=== PATIENT | female | born 1995 | race Caucasian/White ===

== ENCOUNTER 2022-12-06 14:56 | Inpatient (IN) | payer MEDICAID ==
[~2022-12-06] VITALS: Ht 167.6 cm; Wt 75.5 kg
[2022-12-06] MEDS ORDERED: DiphenhydrAMINE HCL 50 MG/ML VIAL IM ONE (16:30)
[2022-12-06] MEDS ORDERED: HALOPERIDOL LACTATE 5 MG/ML VIAL IM ONE (16:30)
[2022-12-06] MEDS ORDERED: LORazepam 2 MG/ML VIAL IM ONE (16:30)
[2022-12-06 17:26] LABS: BASOPHILS % (AUTO) 0.3 % (0.0-2.0); EOSINOPHILS % (AUTO) 0.8 % (1.0-6.0); HEMATOCRIT 38.9 % (36-46); HEMOGLOBIN 13.1 g/dL (12.0-16.0); LYMPHOCYTES # (AUTO) 1.5 K/uL (1.0-4.8); LYMPHOCYTES % (AUTO) 13.6 % (22.0-44.0); MEAN CORPUSCULAR HEMOGLOBIN 28.2 pg (26.0-34.0); MEAN CORPUSCULAR HGB CONC 33.6 G/dL (31.0-37.0); MEAN CORPUSCULAR VOLUME 84 fL (80-100); MONOCYTES # (AUTO) 0.7 K/uL (0.1-1.0); MONOCYTES % (AUTO) 5.7 % (2.0-9.0); NEUTROPHILS % (AUTO) 79.6 % (40.0-70.0); PLATELET COUNT (AUTO) 307 K/uL (150-450); RED BLOOD CELL COUNT(AUTO) 4.63 MIL/uL (4.00-5.20); RED CELL DISTRIBUTION WIDTH 13.6 % (11.5-14.5)
[2022-12-06 17:32] LABS: ANION GAP 12 mmol/L (8-16); CALCIUM, TOTAL 8.6 mg/dL (8.8-10.5); CARBON DIOXIDE 23 mmol/L (22-29); CHLORIDE 104 mmol/L (98-107); CREATININE 0.71 mg/dL (0.60-1.30); GLOMERULAR FILTR. RATE CALC > 60 mL/min (>60); GLUCOSE,RANDOM 125 mg/dL (70-110); POTASSIUM 3.3 mmol/L (3.5-5.1); SODIUM SERUM 139 mmol/L (136-145); UREA NITROGEN, BLOOD 7 mg/dL (7-18)
[2022-12-06 17:38] LABS: ALANINE AMINOTRANSFERASE 67 U/L (12-78); ALBUMIN 4.3 g/dL (3.4-5.0); ALKALINE PHOSPHATASE 76 U/L (46-116); ASPARTATE AMINOTRANSFERASE 91 U/L (15-37); BILIRUBIN,TOTAL 1.2 mg/dL (0.1-1.0); TOTAL PROTEIN, SERUM 7.4 g/dL (6.4-8.2)
[2022-12-06 17:49] LABS: COVID AG,FIA SOURCE NASOPHARYNGEAL
[2022-12-06] MEDS ORDERED: LORazepam 2 MG TABLET PO PRN (19:45)
[2022-12-06] MEDS ORDERED: HALOPERIDOL 5 MG TABLET PO PRN (19:45)
[2022-12-07 08:27] VITALS: BP 118/76
[2022-12-07 09:02] LABS: AMPHET/METH SCREEN,URINE NEGATIVE (NEGATIVE); BARBITURATE SCREEN, URINE NEGATIVE (NEGATIVE); BENZODIAZEPINES SCREEN,URINE NEGATIVE (NEGATIVE); CANNABINOID SCREEN,URINE NEGATIVE (NEGATIVE); COCAINE SCREEN,URINE NEGATIVE (NEGATIVE); METHADONE SCREEN, URINE NEGATIVE (NEGATIVE); OPIATE SCREEN,URINE NEGATIVE (NEGATIVE); PHENCYCLIDINE SCREEN,URINE NEGATIVE (NEGATIVE)
[2022-12-07] MEDS ORDERED: OMEPRAZOLE 20 MG CAPSULE PO PRN (09:15)
[2022-12-07] MEDS ORDERED: BACITRACIN 28 GM OINTMENT TP PRN (09:15)
[2022-12-07] MEDS ORDERED: PETROLATUM,WHITE 28 GM JELLY TP PRN (09:15)
[2022-12-07] MEDS ORDERED: IBUPROFEN 600 MG TABLET PO PRN (09:15)
[2022-12-07] MEDS ORDERED: CloNIDine HCL 0.1 MG TABLET PO PRN (09:15)
[2022-12-07] MEDS ORDERED: ONDANSETRON HCL 4 MG TABLET PO PRN (09:15)
[2022-12-07] MEDS ORDERED: DOCUSATE SODIUM 100 MG CAPSULE PO PRN (09:15)
[2022-12-07] MEDS ORDERED: MAGNESIUM HYDROXIDE SUSPENSION 30 ML UDCUP PO PRN (09:15)
[2022-12-07] MEDS ORDERED: ALBUTEROL SULFATE HFA 90 MCG/PUFF 8 GM INHALER IH PRN (09:15)
[2022-12-07] MEDS ORDERED: ACETAMINOPHEN 325 MG TABLET PO PRN (09:15)
[2022-12-07] MEDS ORDERED: LOPERAMIDE HCL 2 MG CAPSULE PO PRN (09:15)
[2022-12-07] MEDS ORDERED: MAG HYDROX/AL HYDROX/SIMETH ES 30 ML SUSPENSION UDCUP PO PRN (09:15)
[2022-12-07 12:27] VITALS: BP 119/86
[2022-12-07] MEDS: LITHIUM CARBONATE 300 MG CAPSULE PO SCH (16:19)
[2022-12-07] MEDS: RisperiDONE 1 MG TABLET PO SCH (16:19)
[2022-12-07] MEDS: DIVALPROEX SODIUM 500 MG DR TABLET PO SCH (16:19)
[2022-12-07] MEDS: ZOLPIDEM TARTRATE 10 MG TABLET PO PRN (22:53)
[2022-12-07 23:01] VITALS: BP 128/92
[2022-12-08] MEDS: DIVALPROEX SODIUM 500 MG DR TABLET PO SCH ×2 (08:43→16:38)
[2022-12-08] MEDS: LITHIUM CARBONATE 300 MG CAPSULE PO SCH ×2 (08:43→16:38)
[2022-12-08] MEDS: RisperiDONE 1 MG TABLET PO SCH ×2 (08:43→16:38)
[2022-12-08 08:55] VITALS: BP 126/81
[2022-12-08 20:10] VITALS: BP 127/81
[2022-12-08] MEDS: ZOLPIDEM TARTRATE 10 MG TABLET PO PRN (20:29)
[2022-12-09 08:54] VITALS: BP 110/63
[2022-12-09] MEDS: RisperiDONE 1 MG TABLET PO SCH ×2 (09:03→16:54)
[2022-12-09] MEDS: LITHIUM CARBONATE 300 MG CAPSULE PO SCH ×2 (09:03→16:54)
[2022-12-09] MEDS: DIVALPROEX SODIUM 500 MG DR TABLET PO SCH ×2 (09:03→16:54)
[2022-12-09 20:29] VITALS: BP 116/71
[2022-12-09] MEDS: ZOLPIDEM TARTRATE 10 MG TABLET PO PRN (21:04)
[2022-12-10] MEDS: RisperiDONE 1 MG TABLET PO SCH ×2 (09:08→17:23)
[2022-12-10] MEDS: LITHIUM CARBONATE 300 MG CAPSULE PO SCH ×2 (09:08→17:23)
[2022-12-10] MEDS: DIVALPROEX SODIUM 500 MG DR TABLET PO SCH ×2 (09:08→17:23)
[2022-12-10] MEDS ORDERED: DIVA-112 PO (12:08)
[2022-12-10] MEDS ORDERED: RISP1TAB98 PO (12:08)
[2022-12-10] MEDS ORDERED: LITH300C3 PO (12:08)
[2022-12-10 20:17] VITALS: BP 109/75
[2022-12-11 08:34] LABS: LITHIUM 0.24 mmol/L (0.60-1.20)
[2022-12-11] MEDS: RisperiDONE 1 MG TABLET PO SCH (08:36)
[2022-12-11] MEDS: LITHIUM CARBONATE 300 MG CAPSULE PO SCH (08:37)
[2022-12-11] MEDS: DIVALPROEX SODIUM 500 MG DR TABLET PO SCH (08:37)
[2022-12-11 09:08] VITALS: BP 109/73
[2022-12-11 11:21] LABS: GLUCOMETER DEV NAME(LOC) POC.BV
== END 2022-12-11 12:00 | disposition home or self-care (01) | DRG 750 ==
LOC: EMS 14:56 → B3A 20:30 → B2S 12-07 21:27
PROVIDERS: ADMIT Psychiatry & Neurology Psychiatry; ATTEND Psychiatry & Neurology Psychiatry
DX: F25.9 Schizoaffective disorder, unspecified (principal); E87.6 Hypokalemia; F31.9 Bipolar disorder, unspecified; F41.9 Anxiety disorder, unspecified; K59.00 Constipation, unspecified; G47.00 Insomnia, unspecified; Z20.822 Contact with and (suspected) exposure to COVID-19
CPT/HCPCS: 80053; 80164; 80178; 80307; 84703; 85025; 99291; G0480; J1200; J1630; J2060

== ENCOUNTER 2022-12-07 18:21 | Emergency (ER) | payer MEDICAID ==
[~2022-12-07] VITALS: Ht 167.6 cm; Wt 61.4 kg
[2022-12-07 19:53] VITALS: BP 113/69
== END 2022-12-07 22:04 | disposition home or self-care (01) ==
LOC: EMS 18:21
DX: S10.91XA Abrasion of unspecified part of neck, initial encounter (principal); F31.9 Bipolar disorder, unspecified; Z98.890 Other specified postprocedural states; Y04.8XXA Assault by other bodily force, initial encounter; Y93.89 Activity, other specified; Y92.89 Other specified places as the place of occurrence of the external cause; Y99.8 Other external cause status
CPT/HCPCS: 99283; Z7502

== ENCOUNTER 2022-12-21 13:04 | Inpatient (IN) | payer MEDICAID ==
[~2022-12-21] VITALS: Ht 167.6 cm; Wt 75.0 kg
[~2022-12-21 13:04] MED LIST: DIVA-112 PO; LITH300C3 PO; RISP1TAB98 PO
[2022-12-21 14:44] LABS: BASOPHILS % (AUTO) 0.4 % (0.0-2.0); EOSINOPHILS % (AUTO) 0.7 % (1.0-6.0); HEMATOCRIT 41.2 % (36-46); HEMOGLOBIN 13.3 g/dL (12.0-16.0); LYMPHOCYTES # (AUTO) 1.9 K/uL (1.0-4.8); LYMPHOCYTES % (AUTO) 13.2 % (22.0-44.0); MEAN CORPUSCULAR HEMOGLOBIN 27.7 pg (26.0-34.0); MEAN CORPUSCULAR HGB CONC 32.4 G/dL (31.0-37.0); MEAN CORPUSCULAR VOLUME 86 fL (80-100); MONOCYTES # (AUTO) 1.1 K/uL (0.1-1.0); MONOCYTES % (AUTO) 7.4 % (2.0-9.0); NEUTROPHILS # (AUTO) 11.2 K/uL (1.8-7.7); NEUTROPHILS % (AUTO) 78.3 % (40.0-70.0); PLATELET COUNT (AUTO) 396 K/uL (150-450); RED BLOOD CELL COUNT(AUTO) 4.81 MIL/uL (4.00-5.20); RED CELL DISTRIBUTION WIDTH 13.9 % (11.5-14.5)
[2022-12-21 14:47] LABS: ANION GAP 8 mmol/L (8-16); CALCIUM, TOTAL 9.2 mg/dL (8.8-10.5); CARBON DIOXIDE 29 mmol/L (22-29); CHLORIDE 102 mmol/L (98-107); CREATININE 0.78 mg/dL (0.60-1.30); GLOMERULAR FILTR. RATE CALC > 60 mL/min (>60); GLUCOSE,RANDOM 100 mg/dL (70-110); POTASSIUM 3.8 mmol/L (3.5-5.1); SODIUM SERUM 139 mmol/L (136-145)
[2022-12-21 15:00] LABS: ALANINE AMINOTRANSFERASE 26 U/L (12-78); ALKALINE PHOSPHATASE 121 U/L (46-116); ASPARTATE AMINOTRANSFERASE 21 U/L (15-37); BILIRUBIN,TOTAL 0.5 mg/dL (0.1-1.0); HCG,QUANTITATIVE < 1 mIU/mL (0-6); TOTAL PROTEIN, SERUM 8.2 g/dL (6.4-8.2); VALPROIC ACID 98 mcg/mL (50-100)
[2022-12-21 15:30] LABS: COVID AG,FIA SOURCE NASOPHARYNGEAL
[2022-12-21 15:44] LABS: AMPHET/METH SCREEN,URINE NEGATIVE (NEGATIVE); BARBITURATE SCREEN, URINE NEGATIVE (NEGATIVE); BENZODIAZEPINES SCREEN,URINE NEGATIVE (NEGATIVE); CANNABINOID SCREEN,URINE NEGATIVE (NEGATIVE); COCAINE SCREEN,URINE NEGATIVE (NEGATIVE); METHADONE SCREEN, URINE NEGATIVE (NEGATIVE); OPIATE SCREEN,URINE NEGATIVE (NEGATIVE); PHENCYCLIDINE SCREEN,URINE NEGATIVE (NEGATIVE)
[2022-12-21] MEDS: DIVALPROEX SODIUM 500 MG DR TABLET PO SCH (17:30)
[2022-12-21] MEDS: RisperiDONE 1 MG TABLET PO SCH (17:30)
[2022-12-21] MEDS: LITHIUM CARBONATE 300 MG CAPSULE PO SCH (17:31)
[2022-12-21 22:52] VITALS: BP 114/75
[2022-12-21] MEDS ORDERED: LOPERAMIDE HCL 2 MG CAPSULE PO PRN (23:00)
[2022-12-21] MEDS ORDERED: ONDANSETRON HCL 4 MG TABLET PO PRN (23:00)
[2022-12-21] MEDS ORDERED: MAG HYDROX/AL HYDROX/SIMETH ES 30 ML SUSPENSION UDCUP PO PRN (23:00)
[2022-12-21] MEDS ORDERED: CloNIDine HCL 0.1 MG TABLET PO PRN (23:00)
[2022-12-21] MEDS ORDERED: DOCUSATE SODIUM 100 MG CAPSULE PO PRN (23:00)
[2022-12-21] MEDS ORDERED: BACITRACIN 28 GM OINTMENT TP PRN (23:00)
[2022-12-21] MEDS ORDERED: OMEPRAZOLE 20 MG CAPSULE PO PRN (23:00)
[2022-12-21] MEDS ORDERED: MAGNESIUM HYDROXIDE SUSPENSION 30 ML UDCUP PO PRN (23:00)
[2022-12-21] MEDS ORDERED: PETROLATUM,WHITE 28 GM JELLY TP PRN (23:00)
[2022-12-21] MEDS ORDERED: ALBUTEROL SULFATE HFA 90 MCG/PUFF 8 GM INHALER IH PRN (23:00)
[2022-12-22 07:02] LABS: APPEARANCE,URINE CLEAR (CLEAR); BILIRUBIN,URINE NEGATIVE (NEGATIVE); GLUCOSE, URINE (UA) NEGATIVE (NEGATIVE); KETONES,URINE NEGATIVE (NEGATIVE); LEUKOCYTE ESTERASE ,URINE MODERATE (NEGATIVE); NITRATE,URINE NEGATIVE (NEGATIVE); OCCULT BLOOD,URINE NEGATIVE (NEGATIVE); PH,URINE 6.5 (5.0-8.0); PROTEIN,URINE TRACE mg/dL (NEGATIVE); SPECIFIC GRAVITIY, URINE 1.023 (1.003-1.030); UROBILINOGEN,URINE <=1.0 mg/dL (<=1.0)
[2022-12-22 07:05] VITALS: BP 131/84
[2022-12-22 07:08] LABS: AMPHET/METH SCREEN,URINE NEGATIVE (NEGATIVE); BARBITURATE SCREEN, URINE NEGATIVE (NEGATIVE); BENZODIAZEPINES SCREEN,URINE NEGATIVE (NEGATIVE); CANNABINOID SCREEN,URINE NEGATIVE (NEGATIVE); COCAINE SCREEN,URINE NEGATIVE (NEGATIVE); METHADONE SCREEN, URINE NEGATIVE (NEGATIVE); OPIATE SCREEN,URINE NEGATIVE (NEGATIVE); PHENCYCLIDINE SCREEN,URINE NEGATIVE (NEGATIVE)
[2022-12-22] MEDS: ACETAMINOPHEN 325 MG TABLET PO PRN (07:14)
[2022-12-22 07:17] LABS: BACTERIA,URINE None Seen /HPF (None Seen); RBC,URINE None Seen /HPF (0-2); SQUAMOUS EPITHELIAL CELL,UR Few /LPF (None Seen)
[2022-12-22 08:14] VITALS: BP 139/81
[2022-12-22] MEDS: LORazepam 2 MG TABLET PO PRN (08:59)
[2022-12-22] MEDS: LITHIUM CARBONATE 300 MG CAPSULE PO SCH ×2 (08:59→16:55)
[2022-12-22] MEDS: HALOPERIDOL 5 MG TABLET PO PRN (08:59)
[2022-12-22] MEDS: DIVALPROEX SODIUM 500 MG DR TABLET PO SCH ×2 (08:59→16:55)
[2022-12-22] MEDS: RisperiDONE 1 MG TABLET PO SCH ×2 (08:59→16:55)
[2022-12-22 09:11] VITALS: BP 139/81
[2022-12-22 21:22] VITALS: BP 135/74
[2022-12-23] MEDS: LORazepam 2 MG TABLET PO PRN (06:15)
[2022-12-23 06:43] VITALS: BP 106/71
[2022-12-23 09:14] VITALS: BP 130/80
[2022-12-23] MEDS: RisperiDONE 1 MG TABLET PO SCH ×3 (09:28→16:46)
[2022-12-23] MEDS: LITHIUM CARBONATE 300 MG CAPSULE PO SCH ×3 (09:28→16:46)
[2022-12-23] MEDS: DIVALPROEX SODIUM 500 MG DR TABLET PO SCH ×3 (09:28→16:46)
[2022-12-23] MEDS: HALOPERIDOL 5 MG TABLET PO PRN (20:41)
[2022-12-23 22:11] VITALS: BP 141/92
[2022-12-24 00:25] VITALS: BP 99/60
[2022-12-24] MEDS: ACETAMINOPHEN 325 MG TABLET PO PRN (00:28)
[2022-12-24 00:36] VITALS: BP 99/60
[2022-12-24] MEDS: HALOPERIDOL 5 MG TABLET PO PRN (06:38)
[2022-12-24] MEDS: GuaiFENesin [SUGAR-FREE] 200 MG/10 ML SOLUTION UDCUP PO PRN ×2 (07:11→20:40)
[2022-12-24] MEDS: LORazepam 2 MG TABLET PO PRN (08:26)
[2022-12-24] MEDS: DIVALPROEX SODIUM 500 MG DR TABLET PO SCH ×2 (08:26→17:36)
[2022-12-24] MEDS: LITHIUM CARBONATE 300 MG CAPSULE PO SCH ×2 (08:26→17:37)
[2022-12-24] MEDS: RisperiDONE 1 MG TABLET PO SCH ×2 (08:26→17:37)
[2022-12-24 08:49] VITALS: BP 118/72
[2022-12-24] MEDS: ZOLPIDEM TARTRATE 10 MG TABLET PO PRN (20:40)
[2022-12-24 21:23] VITALS: BP 121/77
[2022-12-25] MEDS: RisperiDONE 1 MG TABLET PO SCH ×2 (08:10→16:32)
[2022-12-25] MEDS: DIVALPROEX SODIUM 500 MG DR TABLET PO SCH ×2 (08:11→16:32)
[2022-12-25] MEDS: LITHIUM CARBONATE 300 MG CAPSULE PO SCH ×2 (08:11→16:32)
[2022-12-25 09:16] VITALS: BP 121/71
[2022-12-25] MEDS: ACETAMINOPHEN 325 MG TABLET PO PRN (16:14)
[2022-12-25 16:15] VITALS: BP 124/76
[2022-12-25 17:15] VITALS: BP 121/79
[2022-12-25 20:33] VITALS: BP 141/90
[2022-12-25] MEDS: HALOPERIDOL 5 MG TABLET PO PRN (21:38)
[2022-12-25] MEDS: LORazepam 2 MG TABLET PO PRN (21:38)
[2022-12-25] MEDS: GuaiFENesin [SUGAR-FREE] 200 MG/10 ML SOLUTION UDCUP PO PRN (21:38)
[2022-12-26 07:08] VITALS: BP 124/72
[2022-12-26] MEDS: IBUPROFEN 600 MG TABLET PO PRN (07:11)
[2022-12-26] MEDS: LITHIUM CARBONATE 300 MG CAPSULE PO SCH ×2 (08:09→16:30)
[2022-12-26] MEDS: RisperiDONE 1 MG TABLET PO SCH ×2 (08:09→16:30)
[2022-12-26] MEDS: DIVALPROEX SODIUM 500 MG DR TABLET PO SCH ×2 (08:09→16:29)
[2022-12-26 08:11] VITALS: BP 113/64
[2022-12-26 08:31] VITALS: BP 113/64
[2022-12-26] MEDS: GuaiFENesin [SUGAR-FREE] 200 MG/10 ML SOLUTION UDCUP PO PRN (20:22)
[2022-12-26 20:52] VITALS: BP 113/72
[2022-12-27] MEDS: ACETAMINOPHEN 325 MG TABLET PO PRN (01:23)
[2022-12-27] MEDS ORDERED: HALOPERIDOL LACTATE 5 MG/ML VIAL ONE (02:54)
[2022-12-27] MEDS ORDERED: DiphenhydrAMINE HCL 50 MG/ML VIAL ONE (02:54)
[2022-12-27] MEDS ORDERED: LORazepam 2 MG/ML VIAL ONE (02:54)
[2022-12-27] MEDS ORDERED: DiphenhydrAMINE HCL 50 MG/ML VIAL IM ONE (03:00)
[2022-12-27] MEDS ORDERED: HALOPERIDOL LACTATE 5 MG/ML VIAL IM ONE (03:00)
[2022-12-27] MEDS ORDERED: LORazepam 2 MG/ML VIAL IM ONE (03:00)
[2022-12-27] MEDS: RisperiDONE 1 MG TABLET PO SCH ×2 (10:24→17:28)
[2022-12-27] MEDS: LITHIUM CARBONATE 300 MG CAPSULE PO SCH ×2 (10:24→17:28)
[2022-12-27] MEDS: DIVALPROEX SODIUM 500 MG DR TABLET PO SCH ×2 (10:24→17:28)
[2022-12-27 20:09] VITALS: BP 117/75
[2022-12-28] MEDS: GuaiFENesin [SUGAR-FREE] 200 MG/10 ML SOLUTION UDCUP PO PRN (03:08)
[2022-12-28 08:01] VITALS: BP 132/79
[2022-12-28] MEDS: RisperiDONE 1 MG TABLET PO SCH ×2 (08:01→18:22)
[2022-12-28] MEDS: LITHIUM CARBONATE 300 MG CAPSULE PO SCH ×3 (08:01→18:22)
[2022-12-28] MEDS: IBUPROFEN 600 MG TABLET PO PRN (08:01)
[2022-12-28] MEDS: DIVALPROEX SODIUM 500 MG DR TABLET PO SCH ×2 (08:02→18:22)
[2022-12-28] MEDS: LORazepam 2 MG TABLET PO PRN (08:02)
[2022-12-28 09:01] VITALS: BP 111/79
[2022-12-28] MEDS ORDERED: LORazepam 2 MG/ML VIAL IM ONE (14:00)
[2022-12-28] MEDS ORDERED: DiphenhydrAMINE HCL 50 MG/ML VIAL IM ONE (14:00)
[2022-12-28] MEDS ORDERED: HALOPERIDOL LACTATE 5 MG/ML VIAL IM ONE (14:00)
[2022-12-29] MEDS: LITHIUM CARBONATE 300 MG CAPSULE PO SCH ×3 (08:20→15:57)
[2022-12-29] MEDS: DIVALPROEX SODIUM 500 MG DR TABLET PO SCH ×2 (08:20→15:57)
[2022-12-29] MEDS: RisperiDONE 1 MG TABLET PO SCH ×2 (08:20→15:57)
[2022-12-29 09:05] VITALS: BP 120/80
[2022-12-29] MEDS: LORazepam 2 MG TABLET PO PRN (14:23)
[2022-12-29 20:05] VITALS: BP 117/77
[2022-12-30] MEDS: ZOLPIDEM TARTRATE 10 MG TABLET PO PRN (01:42)
[2022-12-30] MEDS: LORazepam 2 MG TABLET PO PRN (01:42)
[2022-12-30] MEDS: RisperiDONE 1 MG TABLET PO SCH ×2 (07:59→16:20)
[2022-12-30] MEDS: DIVALPROEX SODIUM 500 MG DR TABLET PO SCH ×2 (07:59→16:20)
[2022-12-30] MEDS: LITHIUM CARBONATE 300 MG CAPSULE PO SCH ×3 (07:59→16:20)
[2022-12-30 08:09] VITALS: BP 122/78
[2022-12-30] MEDS: HALOPERIDOL 5 MG TABLET PO PRN (12:03)
[2022-12-30] MEDS: IBUPROFEN 600 MG TABLET PO PRN (15:49)
[2022-12-30 21:03] VITALS: BP 115/79
[2022-12-31] MEDS: HALOPERIDOL 5 MG TABLET PO PRN (05:52)
[2022-12-31] MEDS: LORazepam 2 MG TABLET PO PRN (05:52)
[2022-12-31] MEDS: DIVALPROEX SODIUM 500 MG DR TABLET PO SCH (09:40)
[2022-12-31] MEDS: RisperiDONE 1 MG TABLET PO SCH (09:40)
[2022-12-31] MEDS: LITHIUM CARBONATE 300 MG CAPSULE PO SCH ×2 (09:40→13:05)
[2022-12-31 09:41] LABS: LITHIUM 0.45 mmol/L (0.60-1.20)
[2022-12-31 09:50] VITALS: BP 103/72
[2022-12-31] MEDS ORDERED: LITH300C3 PO (11:31)
== END 2022-12-31 13:00 | disposition home or self-care (01) | DRG 753 ==
LOC: EMS 13:22 → 3EI 17:09 → 3EC 12-24 00:33
PROVIDERS: ADMIT Psychiatry & Neurology Psychiatry; ATTEND Psychiatry & Neurology Psychiatry
DX: F31.9 Bipolar disorder, unspecified (principal); Z91.148 Patient's other noncompliance with medication regimen for other reason; F23 Brief psychotic disorder; Z20.822 Contact with and (suspected) exposure to COVID-19; F41.9 Anxiety disorder, unspecified; G47.00 Insomnia, unspecified; G89.29 Other chronic pain; K59.00 Constipation, unspecified; M25.571 Pain in right ankle and joints of right foot
CPT/HCPCS: 80053; 80164; 80178; 80307; 81001; 84702; 85025; 87081; 87086; 87186; 99285; G0480; J1200; J1630; J2060

== ENCOUNTER 2024-06-01 07:41 | Inpatient (IN) | payer MEDICAID, OTHER ==
[~2024-06-01] VITALS: Ht 170.2 cm; Wt 82.0 kg
[~2024-06-01 07:41] MED LIST changes: +RISP-31 PO; -RISP1TAB98 PO
[2024-06-01 08:16] LABS: BASOPHILS % (AUTO) 0.3 % (0.0-2.0); EOSINOPHILS % (AUTO) 0.4 % (1.0-6.0); HEMATOCRIT 39.7 % (36-46); HEMOGLOBIN 13.3 g/dL (12.0-16.0); LYMPHOCYTES # (AUTO) 1.9 K/uL (1.0-4.8); LYMPHOCYTES % (AUTO) 19.2 % (22.0-44.0); MEAN CORPUSCULAR HEMOGLOBIN 28.4 pg (26.0-34.0); MEAN CORPUSCULAR HGB CONC 33.4 G/dL (31.0-37.0); MEAN CORPUSCULAR VOLUME 85 fL (80-100); MONOCYTES # (AUTO) 0.6 K/uL (0.1-1.0); NEUTROPHILS # (AUTO) 7.4 K/uL (1.8-7.7); NEUTROPHILS % (AUTO) 74.1 % (40.0-70.0); PLATELET COUNT (AUTO) 299 K/uL (150-450); RED BLOOD CELL COUNT(AUTO) 4.68 MIL/uL (4.00-5.20); RED CELL DISTRIBUTION WIDTH 13.5 % (11.5-14.5); WHITE BLOOD COUNT (AUTO) 9.9 K/uL (4.5-11.0)
[2024-06-01 08:28] LABS: ANION GAP 9 mmol/L (8-16); CARBON DIOXIDE 26 mmol/L (22-29); CHLORIDE 101 mmol/L (98-107); CREATININE 0.77 mg/dL (0.60-1.30); GLOMERULAR FILTR. RATE CALC > 60 mL/min (>60); GLUCOSE,RANDOM 91 mg/dL (70-110); POTASSIUM 4.1 mmol/L (3.5-5.1); SODIUM SERUM 136 mmol/L (136-145); UREA NITROGEN, BLOOD 14 mg/dL (7-18)
[2024-06-01] MEDS: DiphenhydrAMINE HCL 50 MG/ML VIAL IM ONE (08:34)
[2024-06-01] MEDS: LORazepam 2 MG/ML VIAL IM ONE (08:35)
[2024-06-01] MEDS: HALOPERIDOL LACTATE 5 MG/ML VIAL IM ONE (08:35)
[2024-06-01 08:37] LABS: COVID AG,FIA SOURCE NASAL SWAB
[2024-06-01 08:51] LABS: AMPHET/METH SCREEN,URINE NEGATIVE (NEGATIVE); BARBITURATE SCREEN, URINE NEGATIVE (NEGATIVE); BENZODIAZEPINES SCREEN,URINE NEGATIVE (NEGATIVE); CANNABINOID SCREEN,URINE POSITIVE (NEGATIVE); COCAINE SCREEN,URINE NEGATIVE (NEGATIVE); METHADONE SCREEN, URINE NEGATIVE (NEGATIVE); OPIATE SCREEN,URINE NEGATIVE (NEGATIVE); PHENCYCLIDINE SCREEN,URINE NEGATIVE (NEGATIVE)
[2024-06-01 08:53] LABS: ALCOHOL, URINE DRUG SCREEN NEGATIVE (NEGATIVE)
[2024-06-01 08:54] LABS: ALCOHOL, BLOOD (SERUM) < 3 mg/dL (0-10)
[2024-06-01 08:59] LABS: SARS-COV2 (COVID) ANTIGEN,FIA Negative (Negative)
[2024-06-02 00:28] VITALS: BP 147/80; PULSE 93; RESP 18; TEMP 98.9; O2SAT 98
[2024-06-02] MEDS ORDERED: LORazepam 2 MG TABLET PO PRN (02:45)
[2024-06-02] MEDS ORDERED: HALOPERIDOL 5 MG TABLET PO PRN (02:45)
[2024-06-02 04:52] VITALS: BP 115/75; PULSE 81; RESP 16; TEMP 97.8; O2SAT 97
[2024-06-02 08:55] VITALS: BP 119/72; PULSE 80; RESP 16; TEMP 97.9; O2SAT 98
[2024-06-02] MEDS: INFLUENZA VIRUS VACCINE TVS (6MO+) 2024-25/PF 45 MCG/0.5 ML SYRINGE IM. ONE (10:18)
[2024-06-02] MEDS ORDERED: ALBUTEROL SULFATE HFA 90 MCG/PUFF 8 GM INHALER IH PRN (11:45)
[2024-06-02] MEDS ORDERED: IBUPROFEN 400 MG TABLET PO PRN (11:45)
[2024-06-02] MEDS ORDERED: MAGNESIUM HYDROXIDE SUSPENSION 30 ML UDCUP PO PRN (11:45)
[2024-06-02] MEDS ORDERED: LOPERAMIDE HCL 2 MG CAPSULE PO PRN (11:45)
[2024-06-02] MEDS ORDERED: ONDANSETRON 4 MG TABLET PO PRN (11:45)
[2024-06-02] MEDS ORDERED: MAG HYDROX/ALUMINUM HYD/SIMETH ES 30 ML SUSPENSION UDCUP PO PRN (11:45)
[2024-06-02] MEDS ORDERED: CloNIDine HCL 0.1 MG TABLET PO PRN (11:45)
[2024-06-02] MEDS ORDERED: PETROLATUM,WHITE 28 GM JELLY TP PRN (11:45)
[2024-06-02] MEDS ORDERED: DOCUSATE SODIUM 100 MG CAPSULE PO PRN (11:45)
[2024-06-02] MEDS ORDERED: NICOTINE 14 MG/24 HOUR PATCH TD PRN (11:45)
[2024-06-02] MEDS ORDERED: ACETAMINOPHEN 325 MG TABLET PO PRN (11:45)
[2024-06-02] MEDS: LITHIUM CARBONATE 600 MG CAPSULE PO SCH (16:44)
[2024-06-02] MEDS: DIVALPROEX SODIUM 500 MG DR TABLET PO SCH (16:44)
[2024-06-02] MEDS: RisperiDONE 1 MG TABLET PO SCH (16:44)
[2024-06-02 20:23] VITALS: BP 141/74; PULSE 90; RESP 18; TEMP 97.8; O2SAT 99
[2024-06-03] MEDS: ZOLPIDEM TARTRATE 10 MG TABLET PO PRN (02:32)
[2024-06-03 08:47] VITALS: BP 130/80; PULSE 100; RESP 18; TEMP 98.6; O2SAT 97
[2024-06-03 09:00] VITALS: BP 130/80; PULSE 100; RESP 18; TEMP 98.6; O2SAT 97
[2024-06-03 09:17] LABS: HEMOGLOBIN A1C 4.9 % (3.8-5.6)
[2024-06-03 09:25] LABS: CHOL/HDL RATIO 3.7 (3.9-5.7); THYROID STIMULATING HORMONE 2.07 uIU/mL (0.36-3.74)
[2024-06-03 20:20] VITALS: BP 125/73; PULSE 78; RESP 18; TEMP 97.9
[2024-06-03] MEDS: QUEtiapine FUMARATE 25 MG TABLET PO SCH (21:35)
[2024-06-04] MEDS: GuaiFENesin/D-METHORPHAN [SUGAR-FREE] 200-20MG/10 ML SYRUP UDCUP PO PRN (02:35)
[2024-06-04 09:28] VITALS: BP 127/67; PULSE 99; RESP 17; TEMP 95.3; O2SAT 97
[2024-06-04] MEDS ORDERED: DIVA-112 PO ×2 (15:22→17:38)
[2024-06-04] MEDS ORDERED: LITH600C5 PO (15:26)
[2024-06-04] MEDS ORDERED: RISP-31 PO ×2 (15:27→17:38)
[2024-06-04] MEDS ORDERED: QUET25TA PO (15:29)
[2024-06-04] MEDS ORDERED: LITH600C PO (17:38)
== END 2024-06-04 16:00 | disposition home or self-care (01) | DRG 750 ==
LOC: EMS 07:41 → B3A 06-02 03:09 → B2S 06-03 13:58 → B3A 06-03 19:05
PROVIDERS: ADMIT Psychiatry & Neurology Child & Adolescent Psychiatry; ATTEND Psychiatry & Neurology Child & Adolescent Psychiatry
PROC: GZ56ZZZ Individual Psychotherapy, Supportive (ICD-10-PCS; principal; 2024-06-02)
DX: F25.0 Schizoaffective disorder, bipolar type (principal); D64.9 Anemia, unspecified; G47.00 Insomnia, unspecified; I10 Essential (primary) hypertension; Z20.822 Contact with and (suspected) exposure to COVID-19; F32.A Depression, unspecified; F41.9 Anxiety disorder, unspecified; F19.90 Other psychoactive substance use, unspecified, uncomplicated; Z78.1 Physical restraint status; Z91.199 Patient's noncompliance with other medical treatment and regimen due to unspecified reason
CPT/HCPCS: 80048; 80061; 80178; 80307; 83036; 84443; 84703; 85025; 99285; G0480; J1200; J1630; J2060

== ENCOUNTER 2024-06-06 06:31 | Inpatient (IN) | payer MEDICAID, OTHER ==
[~2024-06-06] VITALS: Ht 170.2 cm; Wt 81.6 kg
[~2024-06-06 06:31] MED LIST changes: -LITH300C3 PO; +LITH600C PO; +LITH600C5 PO; +QUET25TA PO
[2024-06-06 07:25] LABS: BASOPHILS % (AUTO) 0.3 % (0.0-2.0); EOSINOPHILS % (AUTO) 0.4 % (1.0-6.0); HEMATOCRIT 41.6 % (36-46); LYMPHOCYTES # (AUTO) 1.7 K/uL (1.0-4.8); LYMPHOCYTES % (AUTO) 15.6 % (22.0-44.0); MEAN CORPUSCULAR HEMOGLOBIN 28.4 pg (26.0-34.0); MEAN CORPUSCULAR HGB CONC 33.7 G/dL (31.0-37.0); MEAN CORPUSCULAR VOLUME 84 fL (80-100); MONOCYTES # (AUTO) 0.8 K/uL (0.1-1.0); NEUTROPHILS # (AUTO) 8.5 K/uL (1.8-7.7); NEUTROPHILS % (AUTO) 76.7 % (40.0-70.0); PLATELET COUNT (AUTO) 349 K/uL (150-450); RED BLOOD CELL COUNT(AUTO) 4.94 MIL/uL (4.00-5.20); RED CELL DISTRIBUTION WIDTH 13.8 % (11.5-14.5); WHITE BLOOD COUNT (AUTO) 11.1 K/uL (4.5-11.0)
[2024-06-06 07:34] LABS: ANION GAP 8 mmol/L (8-16); CALCIUM, TOTAL 8.9 mg/dL (8.8-10.5); CARBON DIOXIDE 29 mmol/L (22-29); CHLORIDE 100 mmol/L (98-107); CREATININE 0.83 mg/dL (0.60-1.30); GLOMERULAR FILTR. RATE CALC > 60 mL/min (>60); GLUCOSE,RANDOM 110 mg/dL (70-110); POTASSIUM 4.1 mmol/L (3.5-5.1); SODIUM SERUM 137 mmol/L (136-145); UREA NITROGEN, BLOOD 10 mg/dL (7-18)
[2024-06-06] MEDS ORDERED: HALOPERIDOL 5 MG TABLET PO PRN (07:45)
[2024-06-06 07:47] LABS: COVID AG,FIA SOURCE NASAL SWAB
[2024-06-06 08:03] LABS: APPEARANCE,URINE CLEAR (CLEAR); BILIRUBIN,URINE NEGATIVE (NEGATIVE); COLOR,URINE LIGHT YELLOW (YELLOW); GLUCOSE, URINE (UA) NEGATIVE (NEGATIVE); KETONES,URINE NEGATIVE (NEGATIVE); LEUKOCYTE ESTERASE ,URINE NEGATIVE (NEGATIVE); NITRATE,URINE NEGATIVE (NEGATIVE); OCCULT BLOOD,URINE NEGATIVE (NEGATIVE); PH,URINE 6.5 (5.0-8.0); PH,URINE DRUG SCREEN 6.5 (5.0-8.0); PROTEIN,URINE TRACE mg/dL (NEGATIVE); SPECIFIC GRAVITIY, URINE 1.011 (1.003-1.030); UROBILINOGEN,URINE <=1.0 mg/dL (<=1.0)
[2024-06-06 08:11] LABS: ALCOHOL, URINE DRUG SCREEN NEGATIVE (NEGATIVE); AMPHET/METH SCREEN,URINE NEGATIVE (NEGATIVE); BARBITURATE SCREEN, URINE NEGATIVE (NEGATIVE); BENZODIAZEPINES SCREEN,URINE NEGATIVE (NEGATIVE); CANNABINOID SCREEN,URINE POSITIVE (NEGATIVE); COCAINE SCREEN,URINE NEGATIVE (NEGATIVE); METHADONE SCREEN, URINE NEGATIVE (NEGATIVE); OPIATE SCREEN,URINE NEGATIVE (NEGATIVE); PHENCYCLIDINE SCREEN,URINE NEGATIVE (NEGATIVE)
[2024-06-06 08:24] LABS: ALCOHOL, BLOOD (SERUM) < 3 mg/dL (0-10)
[2024-06-06 08:36] LABS: SARS-COV2 (COVID) ANTIGEN,FIA Negative (Negative)
[2024-06-06] MEDS: HALOPERIDOL LACTATE 5 MG/ML VIAL IM ONE (08:36)
[2024-06-06] MEDS: DiphenhydrAMINE HCL 50 MG/ML VIAL IM ONE (08:36)
[2024-06-06] MEDS: LORazepam 2 MG/ML VIAL IM ONE (08:36)
[2024-06-06 08:46] LABS: HCG,QUANTITATIVE < 1 mIU/mL (0-6)
[2024-06-06 12:17] VITALS: O2SAT 99
[2024-06-06 18:18] VITALS: BP 122/78; PULSE 78; RESP 18; TEMP 98.3; O2SAT 99
[2024-06-06] MEDS ORDERED: MAGNESIUM HYDROXIDE SUSPENSION 30 ML UDCUP PO PRN (21:00)
[2024-06-06] MEDS ORDERED: ACETAMINOPHEN 325 MG TABLET PO PRN (21:00)
[2024-06-06] MEDS ORDERED: BACITRACIN 28 GM OINTMENT TP PRN (21:00)
[2024-06-06] MEDS ORDERED: ALBUTEROL SULFATE HFA 90 MCG/PUFF 8 GM INHALER IH PRN (21:00)
[2024-06-06] MEDS ORDERED: OMEPRAZOLE 20 MG CAPSULE PO PRN (21:00)
[2024-06-06] MEDS ORDERED: MAG HYDROX/ALUMINUM HYD/SIMETH ES 30 ML SUSPENSION UDCUP PO PRN (21:00)
[2024-06-06] MEDS ORDERED: CloNIDine HCL 0.1 MG TABLET PO PRN (21:00)
[2024-06-06] MEDS ORDERED: IBUPROFEN 600 MG TABLET PO PRN (21:00)
[2024-06-06] MEDS ORDERED: DOCUSATE SODIUM 100 MG CAPSULE PO PRN (21:00)
[2024-06-06] MEDS ORDERED: ONDANSETRON 4 MG TABLET PO PRN (21:00)
[2024-06-06] MEDS ORDERED: PETROLATUM,WHITE 28 GM JELLY TP PRN (21:00)
[2024-06-06] MEDS ORDERED: LOPERAMIDE HCL 2 MG CAPSULE PO PRN (21:00)
[2024-06-06 23:34] VITALS: BP 127/68; PULSE 75; RESP 18; TEMP 97.8; O2SAT 98
[2024-06-07] MEDS: ZOLPIDEM TARTRATE 10 MG TABLET PO PRN (01:44)
[2024-06-07] MEDS: LORazepam 2 MG TABLET PO PRN (01:44)
[2024-06-07 08:15] VITALS: BP 106/63; PULSE 96; RESP 16; TEMP 97.4; O2SAT 98
[2024-06-07 08:58] LABS: LITHIUM < 0.20 mmol/L (0.60-1.20)
[2024-06-07 09:04] LABS: HEMOGLOBIN A1C 4.9 % (3.8-5.6)
[2024-06-07 09:15] LABS: CHOL/HDL RATIO 3.1 (3.9-5.7); CHOLESTEROL 179 mg/dL (131-200); FREE T4 (FREE THYROXINE) 1.14 ng/dL (0.76-1.46); HDL CHOLESTEROL 57 mg/dL (40-60); LDL CHOL (CALC.) 109 mg/dL (0-130); THYROID STIMULATING HORMONE 2.21 uIU/mL (0.36-3.74); TRIGLYCERIDES 67 mg/dL (15-150); VALPROIC ACID 5 mcg/mL (50-100)
[2024-06-07 20:51] VITALS: BP 113/61; PULSE 88; RESP 18; TEMP 97.7; O2SAT 98
[2024-06-08] MEDS: BENZOCAINE/MENTHOL LOZENGE PO PRN (00:51)
[2024-06-08 08:17] VITALS: RESP 18
[2024-06-08] MEDS ORDERED: LORazepam 2 MG/ML VIAL ONE (13:02)
[2024-06-08] MEDS ORDERED: HALOPERIDOL LACTATE 5 MG/ML VIAL ONE (13:02)
[2024-06-08] MEDS ORDERED: DiphenhydrAMINE HCL 50 MG/ML VIAL ONE (13:02)
[2024-06-08] MEDS: LORazepam 2 MG/ML VIAL IM ONE (13:18)
[2024-06-08] MEDS: HALOPERIDOL LACTATE 5 MG/ML VIAL IM ONE (13:19)
[2024-06-08] MEDS: DiphenhydrAMINE HCL 50 MG/ML VIAL IM ONE (13:19)
[2024-06-08] MEDS: DIVALPROEX SODIUM 500 MG DR TABLET PO SCH (17:00)
[2024-06-08] MEDS: LITHIUM CARBONATE 600 MG CAPSULE PO SCH (17:00)
[2024-06-08] MEDS: RisperiDONE 1 MG TABLET PO SCH (17:00)
[2024-06-08] MEDS: QUEtiapine FUMARATE 25 MG TABLET PO SCH (20:42)
[2024-06-08 21:28] VITALS: BP 94/59; PULSE 78; RESP 16; TEMP 97.6; O2SAT 98
[2024-06-09 08:46] VITALS: RESP 18
[2024-06-09 20:59] VITALS: BP 125/76; PULSE 90; RESP 18; TEMP 97.6; O2SAT 99
[2024-06-10 08:15] VITALS: BP 114/62; PULSE 91; RESP 17; TEMP 97; O2SAT 98
== END 2024-06-10 18:14 | disposition home or self-care (01) | DRG 753 ==
LOC: EMS 06:36 → B3A 09:25
PROVIDERS: ADMIT Psychiatry & Neurology Psychiatry; ATTEND Psychiatry & Neurology Psychiatry
DX: F31.9 Bipolar disorder, unspecified (principal); R45.851 Suicidal ideations; F29 Unspecified psychosis not due to a substance or known physiological condition; Z91.148 Patient's other noncompliance with medication regimen for other reason; Z20.822 Contact with and (suspected) exposure to COVID-19; F12.10 Cannabis abuse, uncomplicated; G47.00 Insomnia, unspecified; F41.9 Anxiety disorder, unspecified; Z79.899 Other long term (current) drug therapy
CPT/HCPCS: 80048; 80061; 80164; 80178; 80307; 81003; 83036; 84439; 84443; 84702; 84703; 85025; 99285; G0480; J1200; J1630; J2060

== ENCOUNTER 2024-06-17 08:19 | Inpatient (IN) | payer MEDICAID, OTHER ==
[~2024-06-17] VITALS: Ht 167.6 cm; Wt 79.6 kg
[~2024-06-17 08:19] MED LIST changes: -LITH600C5 PO
[2024-06-17 09:08] LABS: BASOPHILS % (AUTO) 0.5 % (0.0-2.0); EOSINOPHILS % (AUTO) 0.5 % (1.0-6.0); HEMATOCRIT 41.3 % (36-46); HEMOGLOBIN 13.6 g/dL (12.0-16.0); LYMPHOCYTES # (AUTO) 1.7 K/uL (1.0-4.8); LYMPHOCYTES % (AUTO) 17.1 % (22.0-44.0); MEAN CORPUSCULAR HEMOGLOBIN 28.1 pg (26.0-34.0); MEAN CORPUSCULAR HGB CONC 32.8 G/dL (31.0-37.0); MEAN CORPUSCULAR VOLUME 86 fL (80-100); MONOCYTES # (AUTO) 0.6 K/uL (0.1-1.0); MONOCYTES % (AUTO) 5.6 % (2.0-9.0); NEUTROPHILS # (AUTO) 7.6 K/uL (1.8-7.7); NEUTROPHILS % (AUTO) 76.3 % (40.0-70.0); PLATELET COUNT (AUTO) 405 K/uL (150-450); RED BLOOD CELL COUNT(AUTO) 4.83 MIL/uL (4.00-5.20); RED CELL DISTRIBUTION WIDTH 13.4 % (11.5-14.5); WHITE BLOOD COUNT (AUTO) 9.9 K/uL (4.5-11.0)
[2024-06-17 09:10] LABS: COVID AG,FIA SOURCE NASAL SWAB
[2024-06-17 09:17] LABS: ANION GAP 8 mmol/L (8-16); CALCIUM, TOTAL 8.5 mg/dL (8.8-10.5); CARBON DIOXIDE 25 mmol/L (22-29); CHLORIDE 105 mmol/L (98-107); CREATININE 0.84 mg/dL (0.60-1.30); GLOMERULAR FILTR. RATE CALC > 60 mL/min (>60); GLUCOSE,RANDOM 119 mg/dL (70-110); POTASSIUM 3.7 mmol/L (3.5-5.1); SODIUM SERUM 138 mmol/L (136-145); UREA NITROGEN, BLOOD 12 mg/dL (7-18)
[2024-06-17 09:20] LABS: APPEARANCE,URINE CLEAR (CLEAR); BILIRUBIN,URINE NEGATIVE (NEGATIVE); COLOR,URINE YELLOW (YELLOW); GLUCOSE, URINE (UA) NEGATIVE (NEGATIVE); KETONES,URINE NEGATIVE (NEGATIVE); LEUKOCYTE ESTERASE ,URINE NEGATIVE (NEGATIVE); NITRATE,URINE NEGATIVE (NEGATIVE); OCCULT BLOOD,URINE NEGATIVE (NEGATIVE); PH,URINE 6.5 (5.0-8.0); PH,URINE DRUG SCREEN 6.5 (5.0-8.0); PROTEIN,URINE 30-70 mg/dL (NEGATIVE); UROBILINOGEN,URINE <=1.0 mg/dL (<=1.0)
[2024-06-17 09:26] LABS: ALCOHOL, URINE DRUG SCREEN NEGATIVE (NEGATIVE); AMPHET/METH SCREEN,URINE NEGATIVE (NEGATIVE); BARBITURATE SCREEN, URINE NEGATIVE (NEGATIVE); BENZODIAZEPINES SCREEN,URINE NEGATIVE (NEGATIVE); CANNABINOID SCREEN,URINE NEGATIVE (NEGATIVE); COCAINE SCREEN,URINE NEGATIVE (NEGATIVE); METHADONE SCREEN, URINE NEGATIVE (NEGATIVE); OPIATE SCREEN,URINE NEGATIVE (NEGATIVE); PHENCYCLIDINE SCREEN,URINE NEGATIVE (NEGATIVE)
[2024-06-17 09:31] LABS: ALCOHOL, BLOOD (SERUM) < 3 mg/dL (0-10)
[2024-06-17 09:33] LABS: BACTERIA,URINE None Seen /HPF (None Seen); RBC,URINE 0-2 /HPF (0-2); SQUAMOUS EPITHELIAL CELL,UR Moderate /LPF (None Seen); WBC,URINE 0-2 /HPF (0-5)
[2024-06-17 09:37] LABS: SARS-COV2 (COVID) ANTIGEN,FIA Negative (Negative)
[2024-06-17] MEDS: LORazepam 1 MG TABLET PO ONE (10:02)
[2024-06-17] MEDS: RisperiDONE 1 MG TABLET PO ONE (10:02)
[2024-06-17 11:46] VITALS: O2SAT 100
[2024-06-17 14:16] VITALS: BP 116/75; PULSE 96; RESP 18; TEMP 97.9; O2SAT 100
[2024-06-17 20:31] VITALS: BP 118/71; PULSE 95; RESP 18; TEMP 98; O2SAT 99
[2024-06-17] MEDS: QUEtiapine FUMARATE 25 MG TABLET PO SCH (21:00)
[2024-06-18] MEDS ORDERED: HALOPERIDOL LACTATE 5 MG/ML VIAL ONE (03:12)
[2024-06-18] MEDS ORDERED: LORazepam 2 MG/ML VIAL ONE (03:12)
[2024-06-18] MEDS ORDERED: DiphenhydrAMINE HCL 50 MG/ML VIAL ONE (03:12)
[2024-06-18] MEDS: DiphenhydrAMINE HCL 50 MG/ML VIAL IM ONE (03:28)
[2024-06-18] MEDS: LORazepam 2 MG/ML VIAL IM ONE ×2 (03:29→04:00)
[2024-06-18] MEDS: HALOPERIDOL LACTATE 5 MG/ML VIAL IM ONE ×2 (03:29→04:05)
[2024-06-18 04:23] VITALS: BP 104/62; PULSE 79; RESP 18; O2SAT 98
[2024-06-18 08:22] VITALS: RESP 18
[2024-06-18] MEDS: DIVALPROEX SODIUM 500 MG DR TABLET PO SCH (08:26)
[2024-06-18] MEDS: LITHIUM CARBONATE 600 MG CAPSULE PO SCH (08:26)
[2024-06-18] MEDS: RisperiDONE 1 MG TABLET PO SCH (08:26)
[2024-06-18 20:43] VITALS: BP 115/66; PULSE 84; RESP 18; TEMP 97; O2SAT 97
[2024-06-19] VITALS (9 sets, daily range): BP systolic 102–129; BP diastolic 66–87; PULSE 70–88; RESP 16–20; TEMP 97–97.5; O2SAT 97–100
[2024-06-19] MEDS ORDERED: LORazepam 2 MG/ML VIAL ONE (03:23)
[2024-06-19] MEDS: HALOPERIDOL LACTATE 5 MG/ML VIAL IM ONE (03:36)
[2024-06-19] MEDS: LORazepam 2 MG/ML VIAL IM ONE (03:36)
[2024-06-19] MEDS: DiphenhydrAMINE HCL 50 MG/ML VIAL IM ONE (03:36)
[2024-06-19] MEDS ORDERED: OMEPRAZOLE 20 MG CAPSULE PO PRN (09:00)
[2024-06-19] MEDS ORDERED: ONDANSETRON 4 MG TABLET PO PRN (09:00)
[2024-06-19] MEDS ORDERED: LOPERAMIDE HCL 2 MG CAPSULE PO PRN (09:00)
[2024-06-19] MEDS ORDERED: MAG HYDROX/ALUMINUM HYD/SIMETH ES 30 ML SUSPENSION UDCUP PO PRN (09:00)
[2024-06-19] MEDS ORDERED: ACETAMINOPHEN 325 MG TABLET PO PRN (09:00)
[2024-06-19] MEDS ORDERED: BENZOCAINE/MENTHOL LOZENGE PO PRN (09:00)
[2024-06-19] MEDS ORDERED: BACITRACIN 28 GM OINTMENT TP PRN (09:00)
[2024-06-19] MEDS ORDERED: PETROLATUM,WHITE 28 GM JELLY TP PRN (09:00)
[2024-06-19] MEDS ORDERED: ALBUTEROL SULFATE HFA 90 MCG/PUFF 8 GM INHALER IH PRN (09:00)
[2024-06-19] MEDS ORDERED: MAGNESIUM HYDROXIDE SUSPENSION 30 ML UDCUP PO PRN (09:00)
[2024-06-19] MEDS ORDERED: CloNIDine HCL 0.1 MG TABLET PO PRN (09:00)
[2024-06-19] MEDS ORDERED: IBUPROFEN 600 MG TABLET PO PRN (09:00)
[2024-06-19] MEDS ORDERED: DOCUSATE SODIUM 100 MG CAPSULE PO PRN (09:00)
[2024-06-19] MEDS: ARIPiprazole 15 MG TABLET PO SCH (09:01)
[2024-06-19] MEDS: DIVALPROEX SODIUM 500 MG DR TABLET PO SCH (09:01)
[2024-06-20] MEDS ORDERED: DiphenhydrAMINE HCL 50 MG/ML VIAL ONE (03:09)
[2024-06-20] MEDS ORDERED: HALOPERIDOL LACTATE 5 MG/ML VIAL ONE (03:09)
[2024-06-20] MEDS ORDERED: LORazepam 2 MG/ML VIAL ONE (03:09)
[2024-06-20] MEDS: HALOPERIDOL LACTATE 5 MG/ML VIAL IM ONE (03:23)
[2024-06-20] MEDS: DiphenhydrAMINE HCL 50 MG/ML VIAL IM ONE (03:23)
[2024-06-20] MEDS: LORazepam 2 MG/ML VIAL IM ONE (03:23)
[2024-06-20 08:20] VITALS: BP 128/86; PULSE 100; RESP 17; TEMP 97.6; O2SAT 99
[2024-06-20 08:33] VITALS: BP 128/86; RESP 17; TEMP 97.6; O2SAT 99
[2024-06-20] MEDS: BENZTROPINE MESYLATE 1 MG TABLET PO SCH (20:03)
[2024-06-20 20:15] VITALS: BP 104/64; PULSE 71; RESP 17; TEMP 97.4; O2SAT 99
[2024-06-20 22:49] VITALS: BP 130/86; PULSE 75; RESP 18; TEMP 97.3; O2SAT 99
[2024-06-21] MEDS: LORazepam 2 MG TABLET PO PRN (08:21)
[2024-06-21] MEDS: HALOPERIDOL 5 MG TABLET PO PRN (08:21)
[2024-06-21 08:25] VITALS: BP 108/65; PULSE 95; RESP 18; TEMP 97.9; O2SAT 96
[2024-06-21 20:35] VITALS: BP 109/72; PULSE 96; RESP 17; TEMP 97.3; O2SAT 97
[2024-06-22 08:16] VITALS: BP 116/75; PULSE 100; RESP 18; TEMP 97.9; O2SAT 100
[2024-06-22] MEDS: INFLUENZA VIRUS VACCINE TVS (6MO+) 2024-25/PF 45 MCG/0.5 ML SYRINGE IM. ONE (20:21)
[2024-06-22 20:42] VITALS: BP 128/94; PULSE 109; RESP 17; TEMP 98; O2SAT 99
[2024-06-23 08:31] VITALS: BP 120/78; PULSE 100; RESP 16; TEMP 97.9; O2SAT 98
[2024-06-23 20:22] VITALS: BP 107/65; PULSE 93; RESP 17; TEMP 98.2; O2SAT 98
[2024-06-24 09:39] VITALS: BP 125/86; PULSE 100; RESP 16; TEMP 97.2; O2SAT 99
[2024-06-24 20:14] VITALS: BP 103/67; PULSE 76; RESP 18; TEMP 98.1; O2SAT 98
[2024-06-25] MEDS: ZOLPIDEM TARTRATE 10 MG TABLET PO PRN (01:36)
[2024-06-25 08:24] VITALS: BP 116/75; PULSE 99; RESP 16; TEMP 98; O2SAT 98
[2024-06-25] MEDS ORDERED: ARIP30TA PO (16:41)
[2024-06-25] MEDS ORDERED: DIVA-112 PO (16:42)
== END 2024-06-25 17:20 | disposition home or self-care (01) | DRG 750 ==
LOC: EMS 08:19 → B3A 10:52
PROVIDERS: ADMIT Psychiatry & Neurology Psychiatry; ATTEND Psychiatry & Neurology Psychiatry
PROC: GZ56ZZZ Individual Psychotherapy, Supportive (ICD-10-PCS; principal; 2024-06-19)
DX: F25.9 Schizoaffective disorder, unspecified (principal); Z91.148 Patient's other noncompliance with medication regimen for other reason; F31.9 Bipolar disorder, unspecified; G47.00 Insomnia, unspecified; Z20.822 Contact with and (suspected) exposure to COVID-19; F41.9 Anxiety disorder, unspecified; K59.00 Constipation, unspecified
CPT/HCPCS: 80048; 80164; 80307; 81001; 85025; 87081; 99285; G0480; J1200; J1630; J2060

== ENCOUNTER 2024-07-20 06:17 | Inpatient (IN) | payer MEDICAID ==
[~2024-07-20] VITALS: Ht 172.7 cm; Wt 81.5 kg
[~2024-07-20 06:17] MED LIST changes: +ARIP30TA PO
[2024-07-20] MEDS ORDERED: ZOLPIDEM TARTRATE 10 MG TABLET PO PRN (07:00)
[2024-07-20 08:06] LABS: GLUCOMETER DEV NAME(LOC) POC.BV; POC SARS-COV2 AG, FIA NEGATIVE (NEGATIVE)
[2024-07-20] MEDS: LORazepam 2 MG TABLET PO PRN (08:24)
[2024-07-20] MEDS: HALOPERIDOL 5 MG TABLET PO PRN (08:24)
[2024-07-20] MEDS ORDERED: INFLUENZA VIRUS VACCINE TVS (6MO+) 2024-25/PF 45 MCG/0.5 ML SYRINGE IM. ONE (08:30)
[2024-07-20] MEDS ORDERED: PNEUMOCOCCAL VACCINE POLYVALENT 0.5 ML SYRINGE [PPSV23] IM. ONE (08:30)
[2024-07-20] MEDS ORDERED: HALOPERIDOL LACTATE 5 MG/ML VIAL ONE (08:34)
[2024-07-20] MEDS ORDERED: LORazepam 2 MG/ML VIAL ONE (08:34)
[2024-07-20] MEDS ORDERED: DiphenhydrAMINE HCL 50 MG/ML VIAL ONE (08:34)
[2024-07-20] MEDS: DiphenhydrAMINE HCL 50 MG/ML VIAL IM ONE (09:33)
[2024-07-20] MEDS: HALOPERIDOL LACTATE 5 MG/ML VIAL IM ONE (09:35)
[2024-07-20] MEDS: LORazepam 2 MG/ML VIAL IM ONE (09:36)
[2024-07-20 09:44] VITALS: BP 131/76; PULSE 85; RESP 18; TEMP 97.3; O2SAT 98
[2024-07-20] MEDS: RisperiDONE 1 MG TABLET PO SCH (17:43)
[2024-07-20] MEDS: DIVALPROEX SODIUM 500 MG DR TABLET PO SCH (17:43)
[2024-07-20] MEDS: LITHIUM CARBONATE 600 MG CAPSULE PO SCH (17:43)
[2024-07-20 20:16] VITALS: RESP 18
[2024-07-20] MEDS: QUEtiapine FUMARATE 25 MG TABLET PO SCH (20:26)
[2024-07-21 08:28] VITALS: RESP 18
[2024-07-21] MEDS: ARIPiprazole 15 MG TABLET PO SCH (09:00)
[2024-07-21 09:54] LABS: BASOPHILS % (AUTO) 0.5 % (0.0-2.0); EOSINOPHILS % (AUTO) 0.5 % (1.0-6.0); HEMATOCRIT 43.6 % (36-46); HEMOGLOBIN 14.7 g/dL (12.0-16.0); LYMPHOCYTES # (AUTO) 1.9 K/uL (1.0-4.8); LYMPHOCYTES % (AUTO) 18.2 % (22.0-44.0); MEAN CORPUSCULAR HEMOGLOBIN 29.4 pg (26.0-34.0); MEAN CORPUSCULAR HGB CONC 33.7 G/dL (31.0-37.0); MEAN CORPUSCULAR VOLUME 87 fL (80-100); MONOCYTES # (AUTO) 0.6 K/uL (0.1-1.0); MONOCYTES % (AUTO) 6.1 % (2.0-9.0); NEUTROPHILS # (AUTO) 7.8 K/uL (1.8-7.7); NEUTROPHILS % (AUTO) 74.7 % (40.0-70.0); PLATELET COUNT (AUTO) 272 K/uL (150-450); RED BLOOD CELL COUNT(AUTO) 5.01 MIL/uL (4.00-5.20); RED CELL DISTRIBUTION WIDTH 14.6 % (11.5-14.5); WHITE BLOOD COUNT (AUTO) 10.4 K/uL (4.5-11.0)
[2024-07-21 10:09] LABS: HEMOGLOBIN A1C 5.1 % (3.8-5.6)
[2024-07-21 10:27] LABS: ALANINE AMINOTRANSFERASE 17 U/L (12-78); ALBUMIN 4.1 g/dL (3.4-5.0); ALKALINE PHOSPHATASE 72 U/L (46-116); ANION GAP 9 mmol/L (8-16); ASPARTATE AMINOTRANSFERASE 18 U/L (15-37); BILIRUBIN,TOTAL 0.8 mg/dL (0.1-1.0); CALCIUM, TOTAL 9.2 mg/dL (8.8-10.5); CARBON DIOXIDE 30 mmol/L (22-29); CHLORIDE 101 mmol/L (98-107); CHOL/HDL RATIO 4.2 (3.9-5.7); CHOLESTEROL 223 mg/dL (131-200); CREATININE 0.97 mg/dL (0.60-1.30); GLOMERULAR FILTR. RATE CALC > 60 mL/min (>60); GLUCOSE,RANDOM 63 mg/dL (70-110); HDL CHOLESTEROL 53 mg/dL (40-60); LDL CHOL (CALC.) 135 mg/dL (0-130); POTASSIUM 4.2 mmol/L (3.5-5.1); SODIUM SERUM 140 mmol/L (136-145); TOTAL PROTEIN, SERUM 8.2 g/dL (6.4-8.2); TRIGLYCERIDES 177 mg/dL (15-150); UREA NITROGEN, BLOOD 14 mg/dL (7-18)
[2024-07-21] MEDS ORDERED: PETROLATUM,WHITE 28 GM JELLY TP PRN (14:15)
[2024-07-21] MEDS ORDERED: NICOTINE 14 MG/24 HOUR PATCH TD PRN (14:15)
[2024-07-21] MEDS ORDERED: GuaiFENesin/D-METHORPHAN [SUGAR-FREE] 200-20MG/10 ML SYRUP UDCUP PO PRN (14:15)
[2024-07-21] MEDS ORDERED: ACETAMINOPHEN 325 MG TABLET PO PRN (14:15)
[2024-07-21] MEDS ORDERED: IBUPROFEN 400 MG TABLET PO PRN (14:15)
[2024-07-21] MEDS ORDERED: ONDANSETRON 4 MG TABLET PO PRN (14:15)
[2024-07-21] MEDS ORDERED: CloNIDine HCL 0.1 MG TABLET PO PRN (14:15)
[2024-07-21] MEDS ORDERED: ALBUTEROL SULFATE HFA 90 MCG/PUFF 8 GM INHALER IH PRN (14:15)
[2024-07-21] MEDS ORDERED: MAG HYDROX/ALUMINUM HYD/SIMETH ES 30 ML SUSPENSION UDCUP PO PRN (14:15)
[2024-07-21] MEDS ORDERED: LOPERAMIDE HCL 2 MG CAPSULE PO PRN (14:15)
[2024-07-21] MEDS ORDERED: DOCUSATE SODIUM 100 MG CAPSULE PO PRN (14:15)
[2024-07-21] MEDS ORDERED: MAGNESIUM HYDROXIDE SUSPENSION 30 ML UDCUP PO PRN (14:15)
[2024-07-21] MEDS: RisperiDONE 2 MG TABLET PO SCH (16:13)
[2024-07-21 20:06] VITALS: BP 109/66; PULSE 98; RESP 19; TEMP 97.5; O2SAT 98
[2024-07-22 08:12] VITALS: BP 117/68; PULSE 100; RESP 16; TEMP 97.4; O2SAT 99
[2024-07-22 08:49] LABS: HEMOGLOBIN A1C 5.3 % (3.8-5.6)
[2024-07-22 08:51] LABS: CHOL/HDL RATIO 3.6 (3.9-5.7); THYROID STIMULATING HORMONE 1.16 uIU/mL (0.36-3.74)
[2024-07-22] MEDS: RisperiDONE ER SUSPENSION 250 MG/0.7 ML PRE-FILLED SYRINGE SQ ONE (09:53)
[2024-07-22] MEDS: LURASIDONE HCL 40 MG TABLET PO SCH (16:19)
[2024-07-22 20:00] VITALS: BP 125/62; PULSE 80; RESP 16; TEMP 97.5; O2SAT 98
[2024-07-23 08:24] VITALS: BP 109/67; PULSE 100; RESP 16; TEMP 97.6; O2SAT 99
[2024-07-23 20:47] VITALS: BP 134/81; PULSE 94; RESP 16; TEMP 97.8; O2SAT 99
[2024-07-24 08:16] VITALS: BP 103/69; PULSE 79; RESP 18; TEMP 96.9; O2SAT 98
[2024-07-24 09:42] LABS: VALPROIC ACID 23 mcg/mL (50-100)
[2024-07-24 10:04] LABS: LITHIUM < 0.20 mmol/L (0.60-1.20)
[2024-07-24] MEDS ORDERED: ARIP15TA27 PO (14:00)
[2024-07-24] MEDS ORDERED: RISP250S SQ (14:00)
[2024-07-24] MEDS ORDERED: LURA60TA PO (14:00)
[2024-07-24] MEDS ORDERED: LURASIDONE HCL 60 MG TABLET PO SCH (17:00)
[2024-09-20] MEDS ORDERED: RisperiDONE ER SUSPENSION 250 MG/0.7 ML PRE-FILLED SYRINGE SQ SCH (09:00)
== END 2024-07-24 15:24 | disposition home or self-care (01) | DRG 753 ==
LOC: B3A 06:59
PROVIDERS: ADMIT Psychiatry & Neurology Psychiatry; ATTEND Psychiatry & Neurology Psychiatry
PROC: GZHZZZZ Group Psychotherapy (ICD-10-PCS; principal; 2024-07-21)
PROC: GZ51ZZZ Individual Psychotherapy, Behavioral (ICD-10-PCS; 2024-07-21)
PROC: GZ56ZZZ Individual Psychotherapy, Supportive (ICD-10-PCS; 2024-07-23)
DX: F31.2 Bipolar disorder, current episode manic severe with psychotic features (principal); R45.851 Suicidal ideations; E16.2 Hypoglycemia, unspecified; Z20.822 Contact with and (suspected) exposure to COVID-19; E78.5 Hyperlipidemia, unspecified; F41.9 Anxiety disorder, unspecified; G47.00 Insomnia, unspecified; Z79.899 Other long term (current) drug therapy
CPT/HCPCS: 80053; 80061; 80164; 80178; 83036; 84443; 84703; 85025; 87081; J1200; J1630; J2060